=== PATIENT | female | born 1985 | race Two or more races ===

== ENCOUNTER 2018-03-12 09:02 | Day surgery (SDC) | payer OTHER ==
[~2018-03-12] VITALS: Ht 163.8 cm; Wt 66.2 kg
[~2018-03-12 09:02] MED LIST: HYDROmorphone 2 MG/ML VIAL IV PRN; IV RINGERS,LACTATED 1000ML 1,000 ML IV SCH; LIDOCAINE 1% PF 2 ML VIAL. ID PRN; LIDOCAINE 2% PF Vial for OR 5 ML VIAL. ONE; MIDAZOLAM HCL/PF 2 MG/2 ML VIAL. ONE; MORPHINE SULFATE 2 MG/ML VIAL. IV PRN; ONDANSETRON PF 4 MG/2 ML VIAL. IV PRN; ONDANSETRON PF 4 MG/2 ML VIAL. ONE; PROCHLORPERAZINE 10 MG/2 ML VIAL. IV PRN; PROPOFOL 20 ML IV ONE; SEVOFLURANE 31 TO 60 MINUTES. IH ONE; fentaNYL PF VIAL 100 MCG/2 ML VIAL IV PRN
[2018-03-12 09:31] LABS: U PREG PATIENT NEGATIVE (NEG)
[2018-03-12] MEDS ORDERED: BUPIVAC MPF-EPI 0.5%-1:200000 30 ML VIAL. ONE (09:36)
[2018-03-12] MEDS ORDERED: LIDOCAINE 1%/EPI 1:100,000 20 ML VIAL. ONE (09:36)
[2018-03-12] MEDS ORDERED: KETOROLAC 30 MG/ML INJ FOR OR. INJ ONE (10:05)
--- NOTE | 2018-03-12 10:40 | DISCH ---
DISCHARGE INSTRUCTIONS Condition on Discharge Condition on Discharge: Unstable Activity After Discharge Activity Instructions for Disc: Resume previous activity Diet after Discharge Diet after Discharge: Regular Wound Incision Care Wound/Incision Care: Other, see below (keep dressing clean and dry) Follow-Up Follow up with: Dr Fang in 1 week in office, call for appt [phone] PAOLA FANG MD Mar 12, 2018 10:40
--- NOTE | 2018-03-12 10:44 | PDOC4 ---
Operative Note Operative Note Operative Note: Preoperative Diagnosis: Left breast mass Postoperative Diagnosis: Same Procedure: Excision of left breast mass Surgeon: Osvaldo Anesthesia: Gen. EBL: 10 mL Specimen: Left breast mass to pathology Drains: None Complications: None Indication: The patient is a 32-year-old female who is referred due to a moderate size left breast mass. She requests complete excision. The risks of surgery were discussed with the patient which include bleeding, infection, recurrence, pain, scar tissue, potential need for additional surgery or procedure. She understands and would like to proceed. Description: The patient was taken to the operating room and placed supine on the operating table. Gen. anesthesia was performed. The left breast was prepped with ChloraPrep and draped in a standard surgical manner. The mass was located near the 2 o'clock position. An incision was made in the skin using a scalpel. Cautery dissection was carried down into the breast parenchyma. The mass was readily identified and was mobilized from the surrounding tissues using cautery. The mass was then fully excised and appeared well circumscribed and grayish in color. The mass measured 3 x 2 cm and was sent to pathology for evaluation. Hemostasis was achieved with cautery. The skin was then closed with 4-0 Monocryl and the incision was infiltrated with half percent Marcaine with epinephrine. An OpSite dressing was applied. The patient tolerated the procedure well and was sent to the recovery room in stable condition. At the end of the case all counts were correct. PAOLA FANG MD Mar 12, 2018 10:44
[2018-03-12] MEDS ORDERED: HYDROcodone/APAP 5/325MG 1 TAB TABLET PO ONE (11:00)
[2018-03-12] MEDS ORDERED: HYDR-3164 PO (11:15)
[2018-03-12 11:54] VITALS: BP 139/80
--- NOTE | 2018-03-13 14:08 | PATHOLOGY ---
[facility] Accession Number: [id number] . 01 Material submitted: . LEFT BREAST MASS . 01 Clinical history: . Left breast mass . 02 Diagnosis: Breast tissue, left breast mass excision: - Fibroadenoma. LBQ/03/13/2018 . 02 Comment: The fibroadenoma in most areas is surrounded by a thin rim of fibrous breast tissue measuring less than 1 mm in thickness. Focally, fibroadenoma is present at the inked margin. There is no evidence of malignancy. (JPM/db; 03/13/2018) . 02 Electronically signed: . Dex Monaco MD, Pathologist NPI- [id number] . 01 Gross description: . The specimen is received in formalin, labeled "Keerthi Vazquez, left breast mass" and consists of a 7 g encapsulated pink-white nodule measuring 2.6 x 2.1 x 1.9 cm. It is inked black and sectioned to reveal homogeneous pink-cuba cut surfaces. The specimen is entirely submitted in A1-A7. The cold ischemic time is 5 minutes and the total formalin fixation time is greater than 6 hours but less than 72 hours. (SDY; 03/12/2018) SYU/SYU . 02 Pathologist provided ICD-10: D24.2 . 02 CPT . 290903 Specimen Comment: A courtesy copy of this report has been sent to Specimen Comment: [phone]. Specimen Comment: Report sent to Performed at: 01 [facility] [address], [place] [id number] MD Tex Mckenna MD Phone: [phone] Performed at: 02 [facility] [address], [place] [id number] MD Dex Monaco MD Phone: [phone]
== END 2018-03-12 12:15 | disposition home or self-care (01) ==
LOC: SURG 09:02
PROVIDERS: ATTEND Surgery
DX: D24.2 Benign neoplasm of left breast (principal); Z98.890 Other specified postprocedural states
CPT/HCPCS: 19120; 81025; 88305; J0690; J1885; J2001; J2250; J2405; J2704; J3490